=== PATIENT | male | born 1950 | race Caucasian/White ===

== ENCOUNTER → 2020-06-29 13:24 | Outpatient (CLI) | payer MEDICARE, SELFPAY ==
--- NOTE | 2020-06-29 13:36 | CT_ITS ---
STUDY: CT ABDOMEN AND PELVIS WITH AND WITHOUT CONTRAST REASON FOR EXAM: Male, 69 years old. RECURRENT UTI''S RADIATION DOSAGE (If Supplied By Facility): CTDIvol = ( 12.78 ) mGy, DLP = ( 843.78 ) mGycm TECHNIQUE: Transaxial images were obtained from the dome of the diaphragm to the symphysis pubis with oral contrast. Oral and amp; IV Gastrografin and amp; 100mL Isovue-300 was administered. Sagittal and coronal images were reconstructed. Individualized dose optimization techniques were used for this CT. COMPARISON: None. FINDINGS: Fine linear density at the right lung base suggestive of linear atelectasis and/or scarring. The visualized portions of the heart are within normal limits. There is a 1.4 cm x 0.9 cm cyst in the medial posterior aspect of the right lobe of the liver. Normal gallbladder and extrahepatic biliary system. Normal spleen. Normal pancreas. Normal bilateral adrenal glands. Normal right kidney. There is a 2.1 solid or cystic in the inferior aspect of the left kidney. There is a small hiatal hernia. Normal small intestine. Normal colon. The appendix is visualized and appears normal. There is scattered atherosclerotic calcification of the abdominal aorta, without a demonstrated aneurysm. Normal inferior vena cava. Normal retroperitoneum. There is diffuse bladder wall thickening. There is a 9.7 cm x 6.3 cm cystic structure abutting the left lateral aspect of the urinary bladder suggestive of a large diverticulum. The prostate measures 3.2 cm x 2.9 cm. Calcifications are seen within. Normal abdominal wall. Spondylosis and disc space narrowing at the L3-L4 level. CT/CT Abd/Pelvis W/WO Contrast IMPRESSION: Diffuse thickening of the bladder wall with the evidence suggestive of a 9.7 sinus by 6.3 cm left-sided bladder diverticulum. Small cyst in the medial posterior aspect of the right lobe of the liver. Electronically Signed: Maged Calixto MD at 14:38 EST , Service support ,
[2020-07-02 07:19] LABS: CREATININE FINGERSTICK 0.87 mg/dL (0.70-1.30); EGFR FINGERSTICK > 60.0 mL/min (>60)
== END ==
DX: N39.0 Urinary tract infection, site not specified (principal)
CPT/HCPCS: 74178; Q9967